=== PATIENT | male | born 1935 | race Caucasian/White ===

== ENCOUNTER → 2016-05-20 | Outpatient (CLI) | payer OTHER, BC ==
[~2016-05-20] VITALS: Ht 177.8 cm; Wt 87.5 kg
[~2016-05-20] MED LIST: ALEVE220 MG PO; ASPIR 8181 MG PO; GLUCOPHAGE XR500 MG PO; LOPRESSOR50 PO; OMEGA-31000 M1 PO; PRAVACHOL20 MG PO; PROSCAR 5MG TABL5 MG PO; UNICOMPLEX M TA1 TA1 PO; VITAMIN D3400 UNIT PO
[2016-05-20 09:43] VITALS: BP 181/85
[2016-05-20 11:10] VITALS: BP 178/85
[2016-05-20 11:20] VITALS: BP 166/94
[2016-05-20 11:30] VITALS: BP 153/77
[2016-05-20 11:36] VITALS: BP 156/77
== END ==
LOC: CAT 09:17
DX: M71.38 Other bursal cyst, other site (principal)